=== PATIENT | female | born 1955 | race Caucasian/White ===

== ENCOUNTER 2022-01-05 09:25 | Emergency (ER) | payer OTHER ==
--- OUTSIDE RECORDS SUMMARY | 2022-01-05 09:29 | XMS REPORT | Continuity of Care Document ---
:1955 Author Organization [facility] t Address [address] [place] [address] Care Team Providers Name Role Phone [facility] Primary Care Physician Unavailable Kyaw Parekh Attending Clinician Unavailable Kyaw LYONS Attending Clinician Unavailable PIPES Attending Clinician Unavailable Pipes ANP Attending Clinician Reece Herron Attending Clinician Unavailable ASHLYN LYONS Attending Clinician Unavailable Claus Mahan MD Attending Clinician Neurology Attending Clinician Unavailable Reece Reddy MD Attending Clinician Radiology Attending Clinician Unavailable Kyaw Parekh Attending Clinician Unavailable Angelic Avendaño Attending Clinician Unavailable Physician, Primary or Family Admitting Clinician Unavailabl e Payers Payer Name Policy Type Policy Number Effective Date Expiration Date Lisa srinivasan [employer] MANAGED [id number] 2020 MEDICARE PPO-UDAY 00:00:00 Problems Condition Condition Condition Status Onset Resolution Last Treating Co mments Source Name Details Category Date Date Treatment Clinician Date Numbness Numbness Disease Active 2019-11 Unive rs and and 2-20 ity of tingling tingling 00:00: [place] of left of left 00 Medical side of side of Branch face face TIA TIA Disease Active 2019-11 Univers (transient (transient 2-15 it y of ischemic ischemic 00:00: [place] attack) attack) 00 Medical Branch Lumbar Lumbar Disease Active Univers radiculopa radiculopa 9-25 it y of thy thy 00:00: [place] 00 Medical Branch Bilateral Bilateral Disease Active Uni vers lower lower 9 [place] of extremity extremity 00:[place] pain [place] Personal Personal Problem Active 2017-11 [facility] history of history of 0-24 Paige kes - colonic colonic 00:00: St polyps polyps [facility] Diverticul Diverticul Problem Active 2017-[address] osis of osis of 0-24 [facility] - large large 00:00: St intestine intestine Jasson without without Outpati perforatio perforatio en t n or n or Clinics abscess abscess without without bleeding bleeding SVT SVT Problem Active [facility] (supravent (supravent Paige kes - ricular ricular St tachycardi tachycardi Tori seph a) a) [facility] ent [facility] Abnormal Abnormal Problem Active [facility] t laboratory laboratory Paige kes - test test [facility] Insomnia, Insomnia, Problem Active [facility] unspecifie unspecifie Paige kes - d type d type [facility] Other Other Problem Active [facility] chronic chronic [facility] - pain pain [facility] Unspecifie Unspecifie Problem Active C HI [facility] d atrial d atrial [facility] - flutter flutter [facility] Unspecifie Unspecifie Problem Active C HI [facility] d atrial d atrial [facility] - fibrillati fibrillati St on on [facility] Osteopenia Osteopenia Problem Active C HI St , , [facility] - unspecifie unspecifie St d location d location [facility] ent Clinics Dyslipidem Dyslipidem Problem Active C HI [facility] ia ia [facility] ent [facility] Lumbar Lumbar Problem Active [facility] spondylosi spondylosi Paige kes - s s [facility] ent Clinics Primary Primary Problem Active [facility] osteoarthr osteoarthr Paige kes - itis of itis of St right hip right hip [facility] ent Clinics Sciatica Sciatica Problem Active [facility] t kes - [facility] ent Clinics Atrial Atrial Disease Active Univers fibrillati fibrillati it y of on [place] [facility] Aortic Aortic Disease Active Univers stenosis stenosis ity [facility] Anxiety Anxiety Disease Active Univers ity [facility] Hyperchole Hyperchole Disease Active U nivers sterolemia sterolemia it y of [place] [facility] [place] Chronic Chronic Disease Active Univers low back low back ity of pain pain [place] [facility] Glaucoma Glaucoma Disease Active Unive rs ity of [place] [facility] Allergies, Adverse Reactions, Alerts Allergy Allergy Status Severity Reaction(s) Onset Inactive Treating Comm ents Source Name Type Date Date Clinician Sulfamet Propensi Active Swelling 2020-11 Univ ers hoxazole ty to 11-28 ity of -Trimeth adverse 00:00: [place] oprim reaction 00 Medical s Branch SULFAMET DRUG Active N/V 2020-11 Univers HOXAZOLE 11-28 ity of -TRIMETH 00:00: [place] OPRIM 00 Medical Branch Penicill Propensi Active Rash 2019- Univer s in ty to 08-01 ity of adverse 00:00: [place] reaction 00 Medical s Branch PENICILL DRUG Active Rash 2020-0 Univers IN INGREDI 08-01 ity of 00:00: [place] 00 Medical Branch Penicill DA Active U 2012-[address] ins 2-13 [facility] - 00[facility]00[facility] 00 [facility] (Malcolm ) Tizanidi Adverse Active throat [facility] ne HCl Reaction swelling [facility] penicill Adverse Active RASH [facility] in Reaction [facility] Social History Social Habit Start Date Stop Date Quantity Comments Source Exposure to Not sure [place] of SARS-CoV-2 [place] [facility] (event) Branch History [facility] University o f Alcohol Comment [place] [facility] Alcohol intake 2021-12-24 2021-12-24 Lifetime University of 00:00:00 00:00:00 non-drinker [place] [facility] (finding) Branch Tobacco use and 2020-08-01 2020-08-01 Never used Universit y of exposure 00:00:00 00:00:00 [place] [facility] History SDOH 2020-08-01 2020-08-01 1 University o f Alcohol Frequency 00:00:00 00:00:00 [place] M edical [facility] History SDOH 2020-08-01 2020-08-01 99 University o f Alcohol Std 00:00:00 00:00:00 [place] [facility] Drinks Branch History SDOH 2020-08-01 2020-08-01 1 University o f Alcohol Binge 00:00:00 00:00:00 [place] [facility] al Branch Sex Ass[birth year] At [birth year] [facility] 00:00:00 00:00:00 Smoking Status Start Date Stop Date Source Tobacco smoking consumption [facility] unknown Never smoker [facility] Medical Branch Medications Ordered Filled Start Stop Current Ordering Indication Dosage Frequency Signature Comments Components Source Medication Medication Date Date Medication? Clinician (SIG) Name Name FLUoxetine Yes [id number] 10mg Take 1 U nivers 10 mg 2-17 capsule by ity of capsule 00:00: mouth [place] 00 daily. Medical Branch FLUoxetine Yes [id number] 10mg Take 1 U nivers 10 mg 2-17 capsule by ity of capsule 00:00: mouth [place] 00 daily. Medical Branch cephALEXin 2020-11 Yes [id number] 500mg Take 1 Univers (KEFLEX) 1-22 capsule by ity o f 500 mg 00:00: mouth 2 [place] capsule 00 (two) Medical times Branch daily. cephALEXin 2020-11 Yes [id number] 500mg Take 1 Univers (KEFLEX) 1-22 capsule by ity o f 500 mg 00:00: mouth 2 [place] capsule 00 (two) Medical times Branch daily. phenazopyri 2020-11- No [id number] 200mg Take 1 Univers dine 1-21 -17 tablet by ity of (PYRIDIUM) 00:00: 00:00 mouth 3 Abdullahi as 200 mg 00 :00 (three) Medical tablet times Branch daily after meals. phenazopyri 2020-11- No [id number] 200mg Take 1 Univers dine -21 02-17 tablet by ity of (PYRIDIUM) 00:00: 00:00 mouth 3 Abdullahi as 200 mg 00 :00 (three) Medical tablet times Branch daily after meals. acetaminoph Yes 500mg Take 500 U nivers en (TYLENOL 8-11 mg by ity of EXTRA 13:00: mouth [place] STRENGTH) 49 every 6 Medical 500 mg (six) Branch tablet hours as needed for Pain. acetaminoph Yes 500mg Take 500 U nivers en (TYLENOL 8-11 mg by ity of EXTRA 13:00: mouth [place] STRENGTH) 49 every 6 Medical 500 mg (six) Branch tablet hours as needed for Pain. rosuvastati Yes 10mg Take 10 mg Univers n 10 mg 5-10 by mouth ity of tablet 10:11: at [place] 42 bedtime. Medical Branch rosuvastati Yes 10mg Take 10 mg Univers n 10 mg 5-10 by mouth ity of tablet 10:11: at [place] [id number] bedtime. Medical Branch traMADoL 50 Yes Univer s mg tablet 3-22 ity of 00:00: [place] 00 Medical Branch baclofen 10 0 Yes Univer s mg tablet 3-22 ity of 00:00: [place] 00 Medical Branch traMADoL 50 0 Yes Univer s mg tablet 3-22 ity of 00:00: [place] 00 Medical Branch baclofen 10 0 Yes Univer s mg tablet 3-22 ity of 00:00: [place] 00 Medical Branch cyclobenzap Yes [id number] 10mg Take 1 Univers rine 10 mg 3-06 tablet by ity of tablet 00:00: mouth 3 [place] 00 (three) Medical times Branch daily as needed for Muscle Spasms. cyclobenzap Yes [id number] 10mg Take 1 Univers rine 10 mg 3-06 tablet by ity of tablet 00:00: mouth 3 [place] 00 (three) Medical times Branch daily as needed for Muscle Spasms. FLUoxetine 2021- No Univer s 10 mg 11-10 ity of capsule 00:00: 00:00 [place] 00 :00 Medical Branch FLUoxetine 2021- No Univer s 10 mg 11-1017 ity of capsule 00:00: 00:00 [place] 00 :00 Medical Branch calcium 2019-11 Yes 600mg Take 600 Unive rs carbonate 2-21 mg by ity of (CALCIUM 22:37: mouth 2 [place] 600) 600 mg 16 (two) Medical calcium times Branch (1,500 mg) daily with tablet meals. calcium 2019-11 Yes 600mg Take 600 Unive rs carbonate 2-21 mg by ity of (CALCIUM 22:37: mouth 2 [place] 600) 600 mg 16 (two) Medical calcium times Branch (1,500 mg) daily with tablet meals. apixaban 5 2019-11 Yes [id number] 5mg Take 1 Unive rs mg tablet 2-16 tablet by ity o f 00:00: mouth [place] 00 every 12 Medical (twelve) Branch hours. Indication s: atrial fibrillati on apixaban 5 2020-1 Yes 1358 5mg Take 1 Unive rs mg tablet 2-16 tablet by ity o f 00:00: mouth [place] 00 every 12 Medical (twelve) Branch hours. Indication s: atrial fibrillati on latanoprost 2021- No Unive rs 0.005 % 06-24 ity of ophthalmic 00:00: 00:00 [place] drops 00 :00 Medical Branch latanoprost 2021- No Unive rs 0.005 % 06-24 ity of ophthalmic 00:00: 00:00 [place] drops 00 :00 Medical Branch flecainide Yes Univers 50 mg 7-10 ity of tablet 00:00: [facility] Branch flecainide Yes Univers 50 mg 7-10 ity of tablet 00:00: [facility] Branch Cyclobenzap Cyclobenzap 2018-11 Yes Sergio Luis Alberto [address] rine HCl rine HCl 2-12 [facility] 00 [facility] PredniSONE PredniSONE 2018-11 Yes Sergio Luis Alberto [address] 2-09 2 days, [facility] - 00:00: then [address] 00 x 2 days [facility] with food Outpati or milk ent Clinics Alprazolam Alprazolam Yes Sergio Luis Alberto [address] 4-09 [facility] - [facility] 00 [facility] Escitalopra Escitalopra Yes Sergio Luis Alberto [address] [facility] m Oxalate m Oxalate 4-09 [facility] 00 [facility] Tramadol Tramadol 2017-11 Yes Sergio Luis Alberto [address] HCl HCl 0-02 [facility] 00 [facility] Crestor Crestor Yes Sergio Luis Alberto [address] 4-24 [facility] 00 [facility] flecainide flecainide Yes Sergio Luis Alberto 1 tab(s) [facility] Calcium Calcium Yes Sergio Luis Alberto [address] [facility] Alendronate Alendronate Yes Sergio Luis Alberto [address] Sodium Sodium [facility] CBD Oil CBD Oil Yes Sergio Ronquilloey as [facility] directed [facility] Clinics Immunizations Ordered Filled Immunization Date Status Comments Sour e Immunization Name Name Influenza High Dose 2020-08-01 Completed Unive rsity of Quad 00:00:00 [place] [facility] Influenza High Dose 2020-08-01 Completed Unive rsity of Quad 00:00:00 [place] [facility] Vital Signs Vital Name Observation Time Observation Value Comments Source Systolic blood 2021-12-24 16:48:00 138 mm[Hg] Univer sity of pressure [facility] Diastolic blood 2021-12-24 16:48:00 71 mm[Hg] Unive rsity of pressure [facility] Heart rate 2021-12-24 16:47:00 61 /min [facility] Body temperature 2021-12-24 16:47:00 [facility].17 [facility] height 2021-12-24 16:47:00 167.6 cm [facility] Body weight 2021-12-24 16:47:00 70.081 kg [facility] BMI 2021-12-24 16:47:00 24.94 kg/m2 [facility] Oxygen saturation in 2021-12-24 16:47:00 100 /min [facility] Arterial blood by [facility] Pulse oximetry Branch Procedures This patient has no known procedures. Encounters Start End Encounter Admission Attending Care Care Encounter Source Date/Time Date/Time Type Type Clinicians Facility Department ID 2021-12-02 Outpatient EDITH Parekh EDITH [id number] 11:44:56 Romero [facility] 2021-12-02 Outpatient IzabellaEDITHLSJC [id number] 11:20:12 Romero [facility] 2021-12-[address] IzabellaMOLLY STLSJC [id number] 11:17:31 Romero [facility] Clinics 2021-03-30 Outpatient SERENA [facility] [id number] [place] 01:03:55 [facility] 2022-01-08 2022-01-08 Outpatient Antonella ESCALANTE [facility] [id number] [facility] 00:00:00 00:00:00 ERASMO [id number] [facility] 2022-01-08 2022-01-08 Outpatient R PIPES, [facility] [id number] Univers 00:00:00 00:00:00 ERASMO [facility] 2021-12-24 2021-12-24 Office Pipes, [facility] [id number] Univers 11:00:00 11:45:24 [facility] [id number] it y of CLEAR [id number] Brendan TYLER [id number] [place] [id number] Branch OFFICE BUILDING 2021-12-24 2021-12-24 Outpatient R PIPES, [facility] [id number] Univers 11:00:00 11:45:24 [facility] 2021-03-17 2021-03-17 Outpatient WILLIAM Herron, [facility] [id number] [facility] 12:00:00 12:00:00 Kim [id number] [facility] 2021-02-27 2021-02-27 Outpatient SERENA, [facility] [id number] 09:40:00 23:59:00 [facility] 2021-02-27 2021-02-27 EXT [facility] OP Serena, EXT MSRDP [id number] [place] 00:00:00 00:00:00 Yared Card LOCATION [id number] H ealth [id number] 2021-02-24 2021-02-24 EXT [facility] OP Negrito, EXT MSRDP [id number] [place] 00:00:00 00:00:00 Barry Devlin LOCATION [id number] H ealth [id number] 2020-08-14 2020-08-14 Letter Neurology [facility] [id number] 00:00:00 00:00:00 (Out) PRIMARY [id number] CARE [id number] PAVILLION [id number] 2020-08-12 2020-08-12 Telephone Maureen [facility] [id number] 00:00:00 00:00:00 [facility] [id number] [place] [id number] Professio [phone] nal 044 Office Building One 2020-08-07 2020-08-07 Hospital Radiology [facility] [id number] 10:51:35 23:59:00 Encounter [place] [id number] [place] [id number] [place] [id number] 2020-08-01 2020-08-01 Office Maureen [facility] [id number] 08:38:31 10:11:22 Visit [facility] [id number] [place] [id number] Professio [id number] nal 044 Office Building One 2020-04-28 2020-04-28 Outpatient [facility] [id number] [address] [place] [address] 00:00:00 00:00:[address] 2020-03-14 2020-03-14 Outpatient [facility] [id number] 11:34:00 11:34:00 Neurosurg Neurosurger [facility] 2020-03-05 2020-03-05 Outpatient R Izabella [facility] [id number] 11:00:00 11:00:00 Romero -[id number] [facility] 2020-03-03 2020-03-03 Outpatient [facility] [id number] 10:00:00 10:00:00 Neurosurg [facility]surger [facility] Outpati ent Clinics 2020-01-31 2020-01-31 Outpatient [facility] [id number] 13:34:00 13:34:[address] [facility] 2020-01-23 2020-01-23 Outpatient Farhanlashawn [facility] [id number] 11:00:00 11:00:00 Romero -[id number] [facility] 2020-01-15 2020-01-[address] [place] [id number] 16:38:00 16:38:00 [facility] [place] [facility] 2019-11-20 2019-11-20 Outpatient SANTIAGO OcampoG [id number] 13:23:00 13:23:00 Jatin -[id number] [facility] Sim (Malcolm ) 2019-10-23 2019-10-23 Outpatient Orthopaed Orthopaedic [id number] 09:45:00 09:45:00 ic Associates José Manuel es - Associate St marcelino [facility] 2019-10-18 2019-10-[address] [place] [id number] 08:43:00 08:43:00 [facility] [place] [facility] 2019-10-15 2019-10-[address] [place] [facility] [id number] 14:20:00 14:20:00 [facility] [place] bourgeois [facility] Results Test Description Test Time Test Comments Results Result [facility] e Comments CR - XRAY 2021-03-10 CONSULTATION PAIN 12:17:35 [facility] DELL[facility] : 1955 Sex: F *PAIN MANAGEMENT CONSULTATION HISTORY AND PHYSICALCHIEF COMPLAINT: Bilateral low back and buttock pain. Status post T12 vertebral body compression fracture kyphoplasty with no pain in lower thoracic region.HISTORY OF PRESENT ILLNESS: The patient is a 65-year-old female status post fall January 10, 2021 with T12 vertebral body compression fracture and associated low mid back pain . On 02/27/2021 I performed an T12 kyphoplasty. She had resolution of her lower mid-back pain since that time. The patient has a history of intermittent low back pain and had just completed physical therapy in early January for above described low back pain. Low back pain had almost completely resolved, however has recurred since T12 compression fracture. She describes her pain as a muscular tightness aggravated by walking and standing partially relieved by sitting, changes in position and hot showers. She has pain at night and difficulty turning over in bed. She has catching in her low back. She has no lower extremity pain numbness or weakness and has no bowel bladder incontinence, fever or chills.Past medical history includes atrial fibrillation, elevated cholesterol, and TIAs. She is allergic to penicillin.Medicatio ns: See listIMAGING: No new imaging since February 2021. Review of MRI of lumbar spine of February 09, 2021 shows scoliosis with multilevel mild disc degeneration throughout lumbar spine. No focal disc herniation, central canal or foraminal stenosis. Multilevel mild facetal arthrosis.PHYSICAL EXAMINATION : Pleasant female in no acute distress with intact gait and heel/toe walking. Lumbar flexion limited to 70 degrees with tightness in both legs. Lumbar extension limited to 15 degrees without pain. The patient has moderate pain on palpation over L3-4 L4-5 facets greater to the left with moderate to severe pain on palpation over L5-S1 facets greater to the left. She has moderate pain on palpation over both SI joints greater to the left. She has positive straight leg raising test bilaterally at 70 degrees for posterior thigh tightness. Sensory examination intact L2-S1 dermatomes with intact sensation to light touch bilaterally. Strength in both lower extremities is 5/5 L3-S1 myotomes bilaterally. Patellar tendon reflexes are 2+ and symmetric and Achilles tendon reflexes are 1+ and symmetricIMPRESSION: 1. Status post T12 vertebral body compression fracture kyphoplasty with resolution of pain in this region.2. Recurrent/persistent low back and bilateral buttock pain. I suspect this is secondary to lumbosacral spondylosis and sacroiliitis. This has been managed most recently with physical therapy and medications. The patient has been practicing home PT and would like to try this option first. She is taking Baclofen which she says is ineffective. I will provide her with a different muscle relaxer. If home PT and medications are ineffective then I will proceed with diagnostic/therapeut ic bilateral L3-4 through L5-S1 facet blocks and bilateral SI joint blocks. Patient will be reevaluated.D MRI Lumbar Spine WO [facility] Pt Name: DELLA BRIGHT [employer] Phys: Antonio Moreno MD ROYER [place] [phone] : 1955 Age: 64 SEX:F [phone] Exam Date: 12/07/19 Status: REG CLI Acct: [id number] Loc: TBSIIMAG Pt Unit #: [id number] Report #: [id number] CC: Antonio Moreno MD Dutch JohnRomero hardin MD MRI REPORT Order # Category/Exam [id number] MRI/MRI Lumbar Spine [facility] ([id number]): . Results EXAM: Lumbar spine MRI without contrast. HISTORY: Right-sided sciatica, low back pain COMPARISON: 05/01/2015 FINDINGS: Multiplanar, multisequence MRI examination of the lumbar spine is performed. The conus medullaris region appears unremarkable. No evidence for abnormal marrow signal. Probable small gallstones in the neck of the gallbladder. Evidence for small bilateral renal mostly parapelvic cysts. Generalized disc desiccation changes. T12-L1 disc level: Unremarkable. L1-L2 disc level: Unremarkable. L2-L3 disc level: Unremarkable. L3-L4 disc level: Central annular fissure with mild bilateral recess stenosis slightly worse on the left side without significant foraminal stenosis. L4-L5 disc level: Mild disc bulging with central annular fissure with mild lateral recess stenosis without significant foraminal stenosis. L5-S1 disc level: Mild disc protrusion with mild indention of the ventral thecal sac. IMPRESSION: Multilevel variable severity mostly mild lateral recess stenosis and multilevel annular fissures. Probable small bilateral renal parapelvic cysts. Probable small gallstones. Little change from prior exam. Reported By: Castillo Varghese MD Electronically Signed Date/Time: 12/07/19935 Technologist: [email or web address] Dictated Date/Time: 12/07/19924 Transcribed Date/Time: XR Lumbar Spine 2 Diagnostic Imaging Or 3 View Center Pt Name: DELLA BRIGHTJudith [address] [place] [address]. Phys: [place] [address] : 1955 Age: 64 SEX:F [phone] Exam Date: 10/15/19 Status: REG CLI Acct: [id number] Loc: BICRAD Pt Unit #: [id number] Report #: [id number] CC: Romero Parekh MD IMAGING SERVICES REPORT Order # Category/Exam [id number] RAD/XR Lumbar Spine 2 Or 3 View ([id number]): . Results XR Lumbar Spine 2 Or 3 View History: M 54.9 dorsalgia, unspecified Comparison: Lumbar spine MRI 2014 Findings: Low-grade levoscoliosis lumbar spine. No acute fracture or malalignment. No significant listhesis. Moderate narrowing of the L3-L4 interspinous space with sclerosis. No significant listhesis. Mild vascular calcifications. Impression: Mild-moderate degenerative changes with low-grade levoscoliosis. No acute osseous abnormality. Reported By: YOUNG COOPER Electronically Signed Date/Time: 10/15/19 1546 Technologist: ANNIKA Dictated Date/Time: 10/15/19 1544 Transcribed Date/Time: XR Hip Rt 2-3 View [facility] Center Pt Name: DELLA BRIGHTJudith [address] [place] [address]. Phys: [place] [address] : 1955 Age: 64 SEX:F [phone] Exam Date: 10/15/19 Status: REG CLI Acct: [id number] Loc: BICRAD Pt Unit #: [id number] Report #: [id number] CC: Romero Parekh MD IMAGING SERVICES REPORT Order # Category/Exam [id number] RAD/XR Hip Rt 2-3 View ([id number]): . Results XR Hip Rt 2-3 View History: Hip pain Comparison: None. Findings: No acute fracture or malalignment. Small acetabular osteophyte formation. Small phleboliths in the left hemipelvis. Right obturator ring is intact. Impression: Low-grade degenerative change. No acute osseous abnormality. Reported By: YOUNG COOPER Electronically Signed Date/Time: 10/15/197 Technologist: ANNIKA Dictated Date/Time: 10/15/19 1546 Transcribed Date/Time: XR Hip Lt 2-3 View [facility] Pt Name: DELLA BRIGHT [address] [facility]. Phys: [place] [address] : 1955 Age: 64 SEX:F [phone] Exam Date: 10/15/19 Status: REG CLI Acct: [id number] Loc: [facility] Pt Unit #: [id number] Report #: [id number] CC: Romero Parekh MD IMAG[facility] SERVICES REPORT Order # Category/Exam [id number] RAD/XR Hip Lt 2-3 View ([id number]): . Results XR Hip Lt 2-3 View History: Hip pain Comparison: None. Findings: No acute fracture or malalignment. Small acetabular osteophyte formation. Low-grade narrowing of the pubic symphysis. Small left hemipelvis phlebolith. Impression: Low-grade degenerative disease. No acute osseous abnormality. Reported By: YOUNG COOPER Electronically Signed Date/Time: 10/15/19 1547 Technologist: ANNIKA Dictated Date/Time: 10/15/19 1547 Transcribed Date/Time:
--- NOTE | 2022-01-05 09:58 | RAD REPORT ---
EXAM DESCRIPTION: CT - CTHCSPWOC - 01/05/2022 9:46 am CLINICAL HISTORY: Trauma, head and neck injury. LOWER BACK PAIN COMPARISON: Thoracic Spine W/o Cont dated 01/05/2022 TECHNIQUE: Axial 5 mm thick images of the head were obtained. Axial 2 mm thick images of the cervical spine were obtained with sagittal and coronal reconstruction images generated and reviewed. All CT scans are performed using dose optimization technique as appropriate and may include automated exposure control or mA/KV adjustment according to patient size. FINDINGS: CT HEAD WITHOUT CONTRAST: No acute hemorrhage, hydrocephalus or extra-axial collection is identified.No areas of brain edema or midline shift. The paranasal sinuses and mastoids are clear.The calvarium is intact. CT CERVICAL SPINE WITHOUT CONTRAST: No fracture or subluxation.No prevertebral soft tissues swelling is identified. Mild cervical spondyl osis including uncovertebral joint hypertrophy C5-6 with mild neural foraminal narrowing bilaterally. IMPRESSION: No acute intracranial or cervical spine findings.
[2022-01-05] MEDS ORDERED: NA CHLORIDE 0.9% 1,000 ML ONE (10:01)
[2022-01-05] MEDS ORDERED: DERMABOND SKIN ADHESIVE TOP ONE ×3 (10:01→11:09)
[2022-01-05] MEDS ORDERED: TETANUS & DIPHTHERIA TOX,ADULT 0.5 ML VIAL ONE (10:01)
--- NOTE | 2022-01-05 10:01 | RAD REPORT ---
EXAM DESCRIPTION: CT - Thoracic Spine W/o Cont - 01/05/2022 9:46 am CLINICAL HISTORY: Radiculopathy. PAIN COMPARISON: Lumbar Spine 3 Views dated 04/27/2021 TECHNIQUE: Axial CT imaging through the thoracic spine was performed with coronal and sagittal re-fo rmatted images. All CT scans are performed using dose optimization technique as appropriate and may include automated exposure control or mA/KV adjustment according to patient size. FINDINGS: Remote T12 compression fracture status post vertebroplasty. Mild endplate spurring is note d. Thoracic spine alignment is within normal limits. No paraspinal masses or hematoma. Heavily calcified aortic valve. Coronary artery calcifications in the LAD . . Intervertebral disc detail is inherently limited on CT without gross findings of canal compromise. IMPRESSION: No acute fracture of the thoracic spine. Remote T12 compression fracture status post kyp hoplasty. Heavily calcified aortic valve. Consider nonemergent echocardiography for further evaluation.
--- NOTE | 2022-01-05 10:03 | RAD REPORT ---
EXAM DESCRIPTION: CT - Spine Lumbar Wo Con - 01/05/2022 9:46 am CLINICAL HISTORY: \ PAIN COMPARISON: Lumbar Spine 3 Views dated 04/27/2021 TECHNIQUE: Axial noncontrast CT imaging of the lumbar spine was performed with coronal and sagittal re-formatted images. All CT scans are performed using dose optimization technique as appropriate and may include automated exposure control or mA/KV adjustment according to patient size. FINDINGS: New mild superior endplate deformity at L3 with less than 20% loss of height. Status post T12 kyphoplasty. No malalignment. Atherosclerosis. No significant focal degenerative changes. No bony retropulsion. IMPRESSION: Mild superior endplate deformity at L3 concerning for a compression fracture with less t stone 20% loss of height. No bony retropulsion .
[2022-01-05 10:15] LABS: Absolute Lymphocytes (CBC) 1.6 K/uL (0.7-4.9); Hematocrit 37.2 % (36.0-45.0); Lymphocytes % 20.8 % (15.3-44.8); MPV 9.2 fL (7.6-11.3); RBC Red Blood Cell Count 3.95 M/uL (3.86-4.86)
[2022-01-05 10:18] LABS: Protime INR 1.09
[2022-01-05 10:29] LABS: Albumin 3.4 g/dL (3.4-5.0); Bilirubin Direct 0.1 mg/dL (0-0.2); Bilirubin Total 0.3 mg/dL (0.2-1.0); CKMB Creatine Kinase MB 1.1 ng/mL (1.0-3.6); Magnesium 1.9 mg/dL (1.8-2.4); Potassium 4.1 mmol/L (3.5-5.1); Protein, Total 6.4 g/dL (6.4-8.2)
[2022-01-05] MEDS ORDERED: LIDOCAINE 1% W/EPI 1:100,000 MDV 50 ML VIAL ONE (11:01)
[2022-01-05] MEDS ORDERED: ONDANSETRON 4 MG/2 ML VIAL ONE (11:05)
[2022-01-05] MEDS ORDERED: MORPHINE 4 MG/ML SYR ONE (11:05)
--- NOTE | 2022-01-05 11:53 | ER ---
Nurse's Notes [facility] Name: Laura Francis Age: 66 yrs Sex: Female : 1955 Arrival Date: 01/05/2022 Time: 09:33 Bed 13 Private MD: Diagnosis: Unspecified injury of head, initial encounter;Laceration without foreign body of unspecified part of head Presentation: 01/05 09:37 Chief complaint: EMS states: syncope this AM, +LOC, +eliquis, has upcoming neuro eo2 appointment for ocular migraine f/u, lac to left eyebrow, c/o neck, back, b/l hip pain, Zofran 4mg IV given enroute. Coronavirus screen: Vaccine status: Patient reports receiving the 2nd dose of the covid vaccine. with booster. Ebola Screen: Patient negative for fever greater than or equal to 101.5 degrees Fahrenheit, and additional compatible Ebola Virus Disease symptoms Patient denies exposure to infectious person. Patient denies travel to an Ebola-affected area in the 21 days before illness onset. Initial Sepsis Screen: Does the patient meet any 2 criteria? No. Patient's initial sepsis screen is negative. Does the patient have a suspected source of infection? No. Patient's initial sepsis screen is negative. Risk Assessment: Do you want to hurt yourself or someone else? Patient reports no desire to harm self or others. Onset of symptoms is unknown. 09:37 Method Of Arrival: EMS: [facility] eo2 09:37 Acuity: JUAN 2 eo2 Triage Assessment: 09:41 General: Appears in no apparent distress. comfortable, Behavior is calm, cooperative. eo2 Pain: Complains of pain in neck, back, b/l hips. Historical: - Allergies: 09:41 PENICILLINS; eo2 - PMHx: 09:41 Atrial fibrillation; TIA; High Cholesterol; T12 FX; eo2 - PSHx: 09:41 Kyphoplasty; dental surgery; eo2 - Immunization history:: Client reports receiving the 2nd dose of the Covid vaccine. - Social history:: Patient/guardian denies using alcohol, street drugs, The patient lives with family, Smoking status: Patient denies any tobacco usage or history of. Screenin:45 Abuse screen: Denies threats or abuse. Denies injuries from another. Nutritional eo2 screening: No deficits noted. Tuberculosis screening: No symptoms or risk factors identified. Fall Risk None identified. Assessment: 09:43 General: Appears in no apparent distress. comfortable, Behavior is calm, cooperative. eo2 Neuro: Reports headache hx ocular migraine, has upcoming MRI on [place], left eye nystagmus and headache. Cardiovascular: Denies chest pain, shortness of breath. Respiratory: Airway is patent Trachea midline Respiratory effort is even, unlabored, Breath sounds are clear bilaterally. Derm: Wound noted Other: Laceration to left eyebrow, bleeding controlled. Musculoskeletal: Reports pain in b/l hips. 10:32 Derm: Wound noted Other: laceration to posterior left scalp. eo2 12:31 Reassessment: noted 4 cristhian to posterior left scalp, triple abx ointment placed, eo2 wound care instructions provided. Vital Signs: 09:37 BP 143 / 69; Pulse 64; Resp 17; Temp 97.5; Pulse Ox 99% ; Weight 68.95 kg; Height 5 ft. eo2 5 in. (165.10 cm); Pain 8/10; 10:19 BP 115 / 67; Pulse 67; Resp 17; Pulse Ox 99% ; eo2 11:00 BP 120 / 56; Pulse 70; Resp 20; Pulse Ox 100% ; Pain 8/10; eo2 12:00 BP 133 / 66; Pulse 70; Resp 17; Pulse Ox 98% ; Pain 5/10; eo2 09:37 Body Mass Index 25.29 (68.95 kg, 165.10 cm) eo2 [place] Coma Score: 09:40 Eye Response: spontaneous(4). Verbal Response: oriented(5). Motor Response: obeys ma2 commands(6). Total: 15. ED Course: 09:33 Patient arrived in ED. em1 09:33 Marcelo Caldwell MD is Attending Physician. ma2 09:37 Ellen Candelario RN is Primary Nurse. eo2 09:41 Triage completed. eo2 09:41 Arm band placed on. eo2 09:45 Patient has correct armband on for positive identification. Pulse ox on. NIBP on. Door eo2 closed. Noise minimized. Warm blanket given. 09:45 No provider procedures requiring assistance completed. Maintain EMS IV. Dressing intact.eo2 09:46 CT Head C Spine In Process Unspecified. EDMS 09:46 CT Lumbar Spine Wo Con In Process Unspecified. EDMS 09:46 CT Thoracic Spine Wo Cont In Process Unspecified. EDMS 12:31 Basic Metabolic Panel Sent. eo2 12:33 IV discontinued, intact. 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 Exp: eo2 03/27/2023. Lot #: [id number]. } Route: IM; Site: right deltoid; 11:08 Follow up: Response: No adverse reaction eo2 11:04 Drug: Zofran (Ondansetron) 4 mg Route: IVP; Site: right antecubital; jg9 12:30 Follow up: Response: No adverse reaction eo2 11:06 Drug: morphine 4 mg Route: IVP; Site: right antecubital; jg9 12:30 Follow up: Response: No adverse reaction; Pain is decreased eo2 11:07 CANCELLED (wrong routee): Ondansetron 4 mg PO once jg9 11:09 Drug: Lidocaine-Epinephrine -1%: (1:100,000) 20 ml {Note: administered by Dr. Caldwell.} eo2 Volume: 20 ml; Route: Infiltration; 12:30 Follow up: Response: No adverse reaction eo2 Intake: 11:08 IV: 1000ml; Total: 1000ml. eo2 Outcome: 11:52 Discharge ordered by . ma2 12:33 Discharged to home ambulatory. eo2 12:33 Condition: stable 12:33 Discharge instructions given to patient, family, Instructed on discharge instructions, follow up and referral plans. medication usage, wound care, Demonstrated understanding of instructions, follow-up care, medications, wound care, Prescriptions given X 1. 12:34 Patient left the ED. eo2 Signatures: Dispatcher [employer] Luis Wyman em1 Marcelo Caldwell MD MD ma2 Angie Biggs, RN RN jg9 Ellen Candelario RN RN eo2
--- NOTE | 2022-01-05 11:53 | EDPHYS ---
Physician Documentation [facility] Name: Laura Francis Age: 66 yrs Sex: Female : 1955 Arrival Date: 01/05/2022 Time: 09:33 Bed 13 Private MD: ED Physician Marcelo Caldwell HPI: 01/05 09:40 This 66 yrs old Female presents to ER via Unassigned with complaints of Syncope, head ma2 injury. 09:40 Associated signs and symptoms: Pertinent positives: Pertinent negatives: biting tongue, ma2 dazed, double vision, incontinence, injury, nausea, neck pain, seizure, shortness of breath, weakness in extremities, generalized weakness. 60-year-old female with history of syncopes, she seen 1st pressman on web press cleared from that point of view, she was seen a neurologist who advised her that she has ocular migraine, and scheduled MRI on Tuesday 3 days from now. Of note patient had syncope unchanged from her usual prior syncopes, she passed out for few seconds, fell forehead hit the floor sustained laceration to left forehead, has mild neck pain, no other injuries. Historical: - Allergies: 09:41 PENICILLINS; eo2 - PMHx: 09:41 Atrial fibrillation; TIA; High Cholesterol; T12 FX; eo2 - PSHx: 09:41 Kyphoplasty; dental surgery; eo2 - Immunization history:: Client reports receiving the 2nd dose of the Covid vaccine. - Social history:: Patient/guardian denies using alcohol, street drugs, The patient lives with family, Smoking status: Patient denies any tobacco usage or history of. ROS: 09:40 Constitutional: Negative for fever, chills, and weight loss. ma2 09:40 All other systems are negative. Exam: 09:40 Constitutional: This is a well developed, well nourished patient who is awake, alert, ma2 and in no acute distress. Head/Face: 2 inches linear left forehead laceration, superficial normocephalic, atraumatic. Eyes: Pupils equal round and reactive to light, extra-ocular motions intact. Lids and lashes normal. Conjunctiva and sclera are non-icteric and not injected. Cornea within normal limits. Periorbital areas with no swelling, redness, or edema. ENT: Nares patent. No nasal discharge, no septal abnormalities noted. Tympanic membranes are normal and external auditory canals are clear. Oropharynx with no redness, swelling, or masses, exudates, or evidence of obstruction, uvula midline. Mucous membranes moist. Neck: Trachea midline, no thyromegaly or masses palpated, and no cervical lymphadenopathy. Supple, full range of motion without nuchal rigidity, or vertebral point tenderness. No Meningismus. Chest/axilla: Normal chest wall appearance and motion. Nontender with no deformity. No lesions are appreciated. Cardiovascular: Regular rate and rhythm with a normal S1 and S2. No gallops, murmurs, or rubs. Normal PMI, no JVD. No pulse deficits. Respiratory: Lungs have equal breath sounds bilaterally, clear to auscultation and percussion. No rales, rhonchi or wheezes noted. No increased work of breathing, no retractions or nasal flaring. Abdomen/GI: Soft, non-tender, with normal bowel sounds. No distension or tympany. No guarding or rebound. No evidence of tenderness throughout. Back: No spinal tenderness. No costovertebral tenderness. Full range of motion. Skin: Warm, dry with normal turgor. Normal color with no rashes, no lesions, and no evidence of cellulitis. MS/ Extremity: Pulses equal, no cyanosis. Neurovascular intact. Full, normal range of motion. Neuro: Awake and alert, GCS 15, oriented to person, place, time, and situation. Cranial nerves II-XII grossly intact. Motor strength 5/5 in all extremities. Sensory grossly intact. Cerebellar exam normal. Normal gait. Vital Signs: 09:37 BP 143 / 69; Pulse 64; Resp 17; Temp 97.5; Pulse Ox 99% ; Weight 68.95 kg; Height 5 ft. eo2 5 in. (165.10 cm); Pain 8/10; 10:19 BP 115 / 67; Pulse 67; Resp 17; Pulse Ox 99% ; eo2 11:00 BP 120 / 56; Pulse 70; Resp 20; Pulse Ox 100% ; Pain 8/10; eo2 12:00 BP 133 / 66; Pulse 70; Resp 17; Pulse Ox 98% ; Pain 5/10; eo2 09:37 Body Mass Index 25.29 (68.95 kg, 165.10 cm) eo2 [place] Coma Score: 09:40 Eye Response: spontaneous(4). Verbal Response: oriented(5). Motor Response: obeys ma2 commands(6). Total: 15. Laceration: 09:40 Wound Repair of 4cm ( 1.6in ) subcutaneous laceration to face. Linear shaped.. Distal ma2 neuro/vascular/tendon intact. Wound prep: Simple cleansing. Skin closed with 2 1-0 Adhesive skin closure using simple sutures and sterile technique. Dressed with Bacitracin, 4x4's. Patient tolerated well. 11:51 Wound Repair of 4cm ( 1.6in ) subcutaneous laceration to scalp. Linear shaped.. Distal ma2 neuro/vascular/tendon intact. Anesthesia: Local anesthetic administered with 10 mls of 1% lidocaine w/ Epi. Wound prep: Moderate cleansing. Skin closed with 4 1-0 [place] using simple sutures and sterile technique. Patient tolerated well. MDM: 09:33 Patient medically screened. ma2 09:40 Differential diagnosis: Contusion of Hematoma on Laceration of Intracranial bleed- ma2 Concussion. Data reviewed: vital signs, nurses notes. Counseling: I had a detailed discussion with the patient and/or guardian regarding: the historical points, exam findings, and any diagnostic results supporting the discharge/admit diagnosis, the presence of at least one elevated blood pressure reading (>120/80) during this emergency department visit, the need for outpatient follow up. Response to treatment: the patient's symptoms have markedly improved after treatment. 11:51 ED course: Patient has L3 compression fracture of superior endplate, however there is ma2 no point tenderness at that spot, patient said she had compression fractures before, this could be an old fracture either way we will prescribe her some pain medicine, she has an old T12 kyphoplasty. 01/05 09:37 Order name: Basic Metabolic Panel [facility] 01/05 09:37 Order name: CBC with Diff; Complete Time: 10:27 [facility] 01/05 09:37 Order name: CPK; Complete Time: 10:45 [facility] 01/05 09:37 Order name: Ckmb; Complete Time: 10:45 [facility] 01/05 09:37 Order name: Hepatic Function; Complete Time: 10:45 [facility] 01/05 09:37 Order name: Lipase; Complete Time: 10:45 [facility] 01/05 09:37 Order name: Magnesium; Complete Time: 10:45 ma2 01/05 09:37 Order name: Protime (+inr) ma2 01/05 09:37 Order name: Ptt, Activated; Complete Time: 10:27 ma2 01/05 09:37 Order name: CT Head C Spine; Complete Time: 10:27 ma2 01/05 09:37 Order name: CT Lumbar Spine Wo Con; Complete Time: 10:27 ma2 01/05 09:37 Order name: CT Thoracic Spine Wo Cont; Complete Time: 10:27 ma2 01/05 09:37 Order name: Basic Metabolic Panel; Complete Time: 10:45 EDMS 01/05 12:11 Order name: Urine Dipstick-Ancillary EDMS 01/05 09:37 Order name: EKG; Complete Time: 09:38 ma2 01/05 09:37 Order name: Cardiac monitoring; Complete Time: 10:12 ma2 01/05 09:37 Order name: EKG - Nurse/Tech; Complete Time: 10:12 ma2 01/05 09:37 Order name: IV Saline Lock; Complete Time: 10:12 ma2 01/05 09:37 Order name: Labs collected and sent; Complete Time: 10:12 ma2 01/05 09:37 Order name: NPO; Complete Time: 12:31 ma2 01/05 09:37 Order name: O2 Per Protocol; Complete Time: 10:12 ma2 01/05 09:37 Order name: O2 Sat Monitoring; Complete Time: 10:12 ma2 01/05 09:37 Order name: Urine Dipstick-Ancillary (obtain specimen); Complete Time: 12:31 ma2 01/05 09:37 Order name: Dermabond; Complete Time: 11:08 ma2 01/05 09:37 Order name: Dressing - Wound; Complete Time: 11:08 ma2 01/05 09:37 Order name: Gloves, Sterile; Complete Time: 11:08 ma2 01/05 09:37 Order name: Setup Suture Tray; Complete Time: 11:08 ma2 01/05 11:51 Order name: Dressing - Wound; Complete Time: 12:31 ma2 Administered Medications: 10:13 Drug: NS 0.9% 1000 ml Route: IV; Rate: 1 bolus; Site: right antecubital; eo2 11:08 Follow up: Response: No adverse reaction; IV Status: Completed infusion; IV Intake: eo2 1000ml 10:13 Drug: Tetanus-Diphtheria Toxoid Adult 0.5 ml {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 Exp: eo2 03/27/2023. Lot #: [id number]. } Route: IM; Site: right deltoid; 11:08 Follow up: Response: No adverse reaction eo2 11:04 Drug: Zofran (Ondansetron) 4 mg Route: IVP; Site: right antecubital; jg9 12:30 Follow up: Response: No adverse reaction eo2 11:06 Drug: morphine 4 mg Route: IVP; Site: right antecubital; jg9 12:30 Follow up: Response: No adverse reaction; Pain is decreased eo2 11:07 CANCELLED (wrong routee): Ondansetron 4 mg PO once jg9 11:09 Drug: Lidocaine-Epinephrine -1%: (1:100,000) 20 ml {Note: administered by Dr. Caldwell.} eo2 Volume: 20 ml; Route: Infiltration; 12:30 Follow up: Response: No adverse reaction eo2 Disposition Summary: 01/05/22 11:52 Discharge Ordered Location: Home ma2 Condition: Stable ma2 Diagnosis - Unspecified injury of head, initial encounter ma2 - Laceration without foreign body of unspecified part of head ma2 Followup: ma2 - With: Private Physician - When: Tomorrow - Reason: If symptoms return, Continuance of care Discharge Instructions: - Discharge Summary Sheet ma2 - Facial Laceration, [id number] ma2 - Head Injury, Adult, [id number] ma2 Forms: - Medication Reconciliation Form ma2 - Thank You Letter ma2 - Antibiotic Education ma2 - Prescription Opioid Use ma2 Prescriptions: - ketorolac 10 mg Oral tablet - take 1 tablet by ORAL route every 4 hours not to exceed 40mg in 24hrs for up to ma2 5 days total use; 30 tablet; Refills: 0, Product Selection Permitted Signatures: Dispatcher [employer] EDMarcelo Wall MD MD ma2 Angie Biggs RN RN jg9 Ellen Candelario RN RN eo2 Corrections: (The following items were deleted from the chart) 11:07 11:01 Ondansetron 4 mg PO once ordered. jg9 jg9 11:07 11:06 Ondansetron 4 mg PO once ordered. jg9 jg9
[2022-01-05 12:11] LABS: Urine Blood Negative (Negative); Urine Glucose Negative (Negative); Urine Protein Negative (Negative); Urine Specific Gravity 1.015 (1.005-1.030)
[2022-01-05 12:49] VITALS: TEMP 97.5
[2022-01-05 12:54] VITALS: BP 133/66; O2SAT 98
--- NOTE | 2022-01-06 11:10 | EKG ---
Test Date: 2022-01-05 Test Time: 09:57:37 Bung Driver: CELIA MEASUREMENT RESULTS: Intervals: Rate: 64 WA: 196 QRSD: 86 QT: 440 QTc: 453 [place]: P: 76 WA: 196 QRS: 21 T: 47 INTERPRETIVE STATEMENTS: Normal sinus rhythm Normal ECG Compared to ECG 11/11/1998 10:32:00 ST (T wave) deviation no longer present Electronically Signed On 01-06-22 11:07:51 DRAFTER CHIEF DESIGN by Karl Moore
== END 2022-01-05 12:34 | disposition home or self-care (01) ==
LOC: ER 09:25
PROC: 0JQ10ZZ Repair Face Subcutaneous Tissue and Fascia, Open Approach (ICD-10-PCS; principal; 2022-01-05)
PROC: 0JQ00ZZ Repair Scalp Subcutaneous Tissue and Fascia, Open Approach (ICD-10-PCS; 2022-01-05)
DX: S01.01XA Laceration without foreign body of scalp, initial encounter (principal); W19.XXXA Unspecified fall, initial encounter; Z23 Encounter for immunization; Z88.0 Allergy status to penicillin
CPT/HCPCS: 96361; 93005; 85025; 80048; 36415; 83735; 82550; 85610; 80076; 85730; 81003; 82553; 83690; 72131; 70450; 72125; 72128; 90471; 90714; 96375; 96374; 99284; 12013; 12002; J7030; J2405